=== PATIENT | male | born 1980 | race Hispanic/Latino ===

== ENCOUNTER 2021-08-16 08:52 | Emergency (ER) | payer OTHER ==
[~2021-08-16] VITALS: Ht 165.1 cm; Wt 82.0 kg
[2021-08-16] MEDS ORDERED: OFLOXACIN0.3 % OD (09:04)
[2021-08-16] MEDS ORDERED: MOTRIN400 MG/TAB PO (09:23)
[2021-08-16 09:40] VITALS: BP 148/88
== END 2021-08-16 09:40 | disposition home or self-care (01) | DRG 125 ==
LOC: ED 08:52
DX: S05.01XA Injury of conjunctiva and corneal abrasion without foreign body, right eye, initial encounter (principal); X58.XXXA Exposure to other specified factors, initial encounter; Y92.89 Other specified places as the place of occurrence of the external cause; Y99.0 Civilian activity done for income or pay